=== PATIENT | male | born 1990 | race Caucasian/White ===

== ENCOUNTER → 2019-08-07 | Outpatient (CLI) | payer BC, OTHER ==
--- NOTE | 2019-08-07 11:56 | US ---
EXAM DESCRIPTION: Venous,Lower Extremity LT: ULTRASOUND. CLINICAL HISTORY: VARICOSE VEINS W ULCER COMPARISON: None Available. TECHNIQUE: Sandhu-scale and doppler sonographic evaluation of the deep venous system of the left lower extremity. FINDINGS: Doppler evaluation shows normal color flow and normal phasicity and augmentation of the left common femoral vein, femoral vein, popliteal vein, greater saphenous vein, junction with the CFV. Also normal color flow and normal phasicity and augmentation of the peroneal, and posterior tibial vein. The left lower extremity deep veins were completely compressible; normal occlusion with transducer pressure. Sandhu-scale survey showed no echogenic thrombus within these veins. IMPRESSION: 1. Duplex ultrasound evaluation of the left lower extremity deep venous system showing no evidence of thrombosis. Electronically signed by: Stanley Magaña MD 08/07/2019 11:54 AM CDT
== END ==
LOC: US 08:15
PROVIDERS: ATTEND Family Medicine
DX: I83.008 Varicose veins of unspecified lower extremity with ulcer other part of lower leg (principal)

== ENCOUNTER → 2019-09-24 | Outpatient (CLI) | payer OTHER | LOC: GMAM 14:40 | PROVIDERS: ATTEND Family Medicine | DX: R53.83 Other fatigue (principal); D69.6 Thrombocytopenia, unspecified ==

== ENCOUNTER → 2019-09-28 | Outpatient (CLI) | payer OTHER ==
--- NOTE | 2019-09-28 13:20 | CT ---
EXAM DESCRIPTION: CT head without contrast CLINICAL HISTORY: PERSONAL HISTORY OF TRAUMATIC BRAIN INJURY COMPARISON: None available TECHNIQUE: Noncontrast head CT was performed with routine protocol. FINDINGS: Normal orellana-white matter differentiation. Ventricles and sulci are normal for age. No high density hemorrhage, focal edema or shift of the midline. No sulcal effacement. Normal orbital contents. Basilar cisterns appear clear. Intact calvarium with no fracture or lytic lesion. Normal aeration of tympanic cavities and mastoid air cells. Fluid in the right maxillary sinus with mucosal thickening consistent with sinusitis.. Skull base appears intact. Symmetrical internal auditory canals. IMPRESSION: No acute intracranial pathologic process. Right maxillary sinusitis. This exam was performed according to our departmental dose-optimization program, which includes automated exposure control, adjustment of the mA and/or kV according to patient size and/or use of iterative reconstruction technique. Total DLP equals 859.97 mGycm. Electronically signed by: Chris Lewis MD 09/28/2019 1:18 PM [facility]
--- NOTE | 2019-09-28 13:27 | MRI ---
EXAM DESCRIPTION: MRI of the brain w/oContrast CLINICAL HISTORY: PERSONAL HISTORY OF TRAUMATIC BRAIN TRAUMA COMPARISON: None available TECHNIQUE: Non contrast MRI of the brain is performed according to our usual protocol including multiplanar multi sequence technique. FINDINGS: Sagittal T1 images show intact corpus callosum. Normal pituitary gland with normal T1 appearance of the ching and medulla and upper cervical cord. Normal signal intensity within the clivus and calvarium. Axial T2 fat sat images reveal preservation of intracranial vascular flow voids. Normal orellana matter and white matter T2 signal intensity. Normal ventricles with normal gyral and sulcal fold pattern. The globes appear intact and symmetrical. Positive abnormal fluid signal in the right more than left maxillary sinuses consistent with sinusitis. Minimal patchy mucosal thickening in the ethmoid air cells and right frontal sinus. Small because retention cyst in the posterior right sphenoid sinus 1.1 cm. No abnormal fluid signal in the tympanic cavities or mastoid air cells. Axial flair images show normal signal intensity of the orellana matter and the white matter. No microvascular ischemic changes. Diffusion weighted images are negative for focal intense increased signal intensity in the brain parenchyma to suggest restricted diffusion. ADC mapping is negative. Axial T1 images show normal orellana-white matter differentiation. No high signal intensity hemorrhagic lesion of the brain parenchyma. No subdural hematoma. Axial susceptibility weighted images are positive for scattered areas of signal loss consistent with multifocal hemosiderin deposition from old trauma. Old microhemorrhages related to hypertension, vascular malformations or amyloidosis of the brain might produce a similar appearance but are thought less likely in this patient with history of traumatic brain injury. Correlating with the head CT, no brain parenchymal calcifications are seen as a cause of the present appearance. One might consider follow-up study in one year to ensure stability. IMPRESSION: No acute intracranial pathologic process. Electronically signed by: Chris Lewis MD 09/28/2019 1:25 PM [employer]
--- NOTE | 2019-09-28 13:29 | MRI ---
EXAM DESCRIPTION: Cervical Spine CLINICAL HISTORY: CERVICAL DISC DISORDER WITH RADICULOPATHY HIGH CERVICAL REGION COMPARISON: None Available. TECHNIQUE: MRI of the cervical spine is performed according to our usual protocol. FINDINGS: Sagittal T2 images reveal normal signal intensity within the intervertebral discs. Normal T2 appearance of the cervical cord. Posterior discal abnormalities are not as prominent finding. Sagittal T1 images show benign marrow signal characteristics. Normal T1 appearance of the cervical and upper thoracic spinal cord. Normal alignment of the vertebral bodies and facets. Sagittal STIR images are negative for high signal intensity marrow edema within the vertebral bodies or posterior elements. No paraspinous fluid collection or cystic lesion. Axial images were obtained to evaluate the disc levels. C2-3: Normal posterior disc margin with no spinal stenosis or neural foraminal narrowing. Facets appear normal. Normal appearance of the cord at this level. C3-4: Normal posterior disc margin with no spinal stenosis or neural foraminal narrowing. Facets appear normal. Normal appearance of the cord at this level. C4-5: Normal posterior disc margin with no spinal stenosis or neural foraminal narrowing. Facets appear normal. Normal appearance of the cord at this level. C5-6: Normal posterior disc margin with no spinal stenosis or neural foraminal narrowing. Facets appear normal. Normal appearance of the cord at this level. C6-7: Normal posterior disc margin with no spinal stenosis or neural foraminal narrowing. Facets appear normal. Normal appearance of the cord at this level. C7-T1: Normal posterior disc margin with no spinal stenosis or neural foraminal narrowing. Facets appear normal. Normal appearance of the cord at this level. IMPRESSION: No diagnostic abnormality is identified on MRI examination of the cervical spine. Electronically signed by: Chris Lewis MD 09/28/2019 1:28 PM [facility]
== END ==
LOC: MRI 11:42
PROVIDERS: ATTEND Psychiatry & Neurology Neurology
DX: M50.11 Cervical disc disorder with radiculopathy, high cervical region (principal); J01.00 Acute maxillary sinusitis, unspecified; Z87.820 Personal history of traumatic brain injury